=== PATIENT | male | born 1970 | race Caucasian/White ===

== ENCOUNTER 2020-07-29 19:39 | Emergency (ER) | payer SELFPAY ==
[2020-07-29 23:30] LABS: Carbon Dioxide 22 mmol/L (22-29); Chloride 103 mmol/L (98-107); Potassium 3.6 mmol/L (3.5-5.1); Sodium 138 mmol/L (136-145); Troponin I 0.026 ng/mL (< 0.028)
[2020-07-29 23:31] LABS: Anion Gap 17 mmol/L (10-20); BUN (Urea Nitrogen) 49 mg/dL (8.4-25.7); Bilirubin, Total 0.7 mg/dL (0.2-1.2); Calc. Creatinine Clearance 0 mL/min (70-130); Calcium 8.2 mg/dL (7.8-10.44); Estimated GFR-MDRD 7; Glucose 214 mg/dL (70-105)
[2020-07-29 23:32] LABS: ALT (SGPT) Less than 7 U/L (8-55); AST (SGOT) 13 U/L (5-34); Albumin 4.3 g/dL (3.5-5.0); Alkaline Phosphatase 95 U/L (40-110); Globulin 2.7 g/dL (2.4-3.5)
[2020-07-29 23:44] LABS: #Basophils 0.1 thou/uL (0.0-0.2); #Eosinphils 0.3 thou/uL (0.0-0.7); #Lymphocytes 2.1 thou/uL (1.20-3.40); #Monocytes 0.6 thou/uL (0.11-0.59); #Neutrophils 6.8 thou/uL (1.40-6.50); %Basophils 0.8 % (0.0-1.0); %Eosinophils 2.8 % (0.0-10.0); %Lymphocytes 21.4 % (21.0-51.0); %Monocytes 6.2 % (0.0-10.0); %Neutrophils 68.8 % (42.0-75.0); Hemoglobin 11.7 g/dL (14.0-18.0); Mean Corpuscular HGB CONC 33.9 g/dL (32.0-36.0); Mean Corpuscular Hemoglobin 30.5 pg (27.0-31.0); Mean Platelet Volume 7.6 fL (7.4-10.4); Platelet Count 198 thou/uL (130-400); RBC Distribution Width 13.8 % (11.5-14.5); Red Blood Cell (RBC) Count 3.84 mill/uL (4.70-6.10); White Blood Cell (WBC) Count 9.9 thou/uL (4.8-10.8)
[2020-07-30 01:03] LABS: HBSAg Index 0.21 S/CO (0-0.99); Hep B Surf Ag Non-Reactive S/CO (NonReactive)
--- NOTE | 2020-07-30 07:24 | RAD ---
PORTABLE CHEST: Date: 07/29/2020 PROVIDED CLINICAL HISTORY: None. FINDINGS: The cardiac silhouette appears enlarged. Right IJ dialysis catheter is noted with lead tips overlying expected location of cavoatrial junction. The left hemidiaphragm is not well visualized, which may r eflect left basilar pleural and/or parenchymal opacity. There is no evidence for pneumothorax. The ri ght lung appears clear. IMPRESSION: Cardiomegaly and possible left basilar pleural and/or parenchymal opacity. POS: [facility]
[2020-07-30] MEDS ORDERED: Heparin 10,000 UNITS/ 10 ML VIAL ONE (10:13)
--- NOTE | 2020-07-31 07:33 | CON ---
DATE OF CONSULTATION: REASON FOR CONSULTATION: End-stage kidney disease, for maintenance hemodialysis. HISTORY OF PRESENT ILLNESS: A 50-year-old gentleman, presented to the hospital with dyspnea on exertion, missed dialysis for 2 days. The patient was . The patient denies any chest pain. The patient has orthopnea PND. PAST MEDICAL HISTORY: Hypertension, anemia, end-stage renal disease, history of secondary hyperparathyroidism, history of tunneled dialysis catheter, history of AV fistula. SOCIOECONOMIC HISTORY: No alcohol or drug abuse. FAMILY HISTORY: Negative for ESRD. ALLERGIES: REVIEWED. HOME MEDICATIONS: List reviewed. HOSPITAL MEDICATIONS: List reviewed. REVIEW OF SYSTEMS: 15-point review of system was performed and negative except for positives noted above. HEENT: Eyes intact, no diplopia. Ears: No hearing loss or earache. Nose: No discharge or bleeding. CHEST: No cough or phlegm. ABDOMEN: No nausea or vomiting. GENITOURINARY: No hematuria. No Johnson catheter. MUSCULOSKELETAL: No low back pain. No joint swelling or pain. NEUROLOGICAL: No syncope. No seizures. SKIN: No complaints of rash or itching. PSYCHIATRIC: No depression. CONSTITUTIONAL: No weight loss or loss of appetite. PHYSICAL EXAMINATION: GENERAL: The patient is awake, alert. VITAL SIGNS: Afebrile, pulse 80, breathing 16, blood pressure 139/75 HEENT: Head normocephalic and atraumatic. Eyes intact, no ulcers. Nose intact, no ulcers. Ears intact, no ulcers. NECK: Supple. No JVD. CHEST: Symmetrical and clear. CARDIOVASCULAR: Shows S1 and S2, no rub, no murmur. GASTROINTESTINAL: Abdomen is soft, bowel sounds positive. EXTREMITIES: Show no edema or ulcers. SKIN: Shows no rash or petechiae. MUSCULOSKELETAL: Shows no joint swelling or stiffness. GENITOURINARY: Shows no Johnson or CVA tenderness. NEUROLOGIC: Motor intact. Cranial nerves intact. LABORATORY DATA: Reviewed. ASSESSMENT: 1. Stage chronic kidney disease, continue hemodialysis. 2. Hypertension, stable. 3. Anemia, stable. 4. Orthopnea and dyspnea. PLAN: Dialysis. Ultrafiltration. The patient will follow up to regular dialysis on Saturday. Job ID: [id number]
== END 2020-07-30 11:26 | disposition home or self-care (01) ==
LOC: ERS 19:39
DX: E87.70 Fluid overload, unspecified (principal); I12.0 Hypertensive chronic kidney disease with stage 5 chronic kidney disease or end stage renal disease; N18.6 End stage renal disease; E10.22 Type 1 diabetes mellitus with diabetic chronic kidney disease; F17.220 Nicotine dependence, chewing tobacco, uncomplicated; F43.10 Post-traumatic stress disorder, unspecified; Z99.2 Dependence on renal dialysis
CPT/HCPCS: 36415; 71045; 80053; 83880; 84484; 85025; 87340; 90935; 93005; G0257; J1644